=== PATIENT | male | born 1970 | race American Indian/Alaskan Native ===

== ENCOUNTER 2016-09-06 08:02 | Day surgery (SDC) | payer OTHER ==
[2016-09-06] MEDS ORDERED: WATER FOR IRRIG STERILE IR ONE (09:45)
[2016-09-06] MEDS ORDERED: HURRICAINE ONE 20% TOPICAL SPRAY MM ×3 (09:50→09:53)
--- NOTE | 2016-09-06 10:39 | Short Stay Summary ---
Short Stay Documentation Date of service: 09/06/16 - Allergies and Medications Current Medications: Allergies No Known Allergies Allergy (Verified 07/29/15 06:39) Home Medications Medication Instructions Recorded Confirmed Last Taken Type Ascorbic Acid [Vitamin C] 500 mg PO BID 06/14/15 09/06/16 09/05/16 09:00 History Diltiazem [Cardizem] 120 mg PO BID 06/14/15 09/06/16 09/05/16 21:00 History Ferrous Sulfate [Feosol 325 MG tab] 325 mg PO BID 06/14/15 09/06/16 09/05/16 09: 00 History Lisinopril/Hydrochlorothiazide 1 tab PO QDAY 06/14/15 09/06/16 09/05/16 09:00 History [Zestoretic 20-25 mg] Metoprolol [Lopressor TAB] 50 mg PO QDAY 06/14/15 09/06/16 09/05/16 09:00 History Multivits,Ca,Min/Iron/FA/Lycop 1 each PO QDAY 06/14/15 09/06/16 09/05/16 09:00 History [Centrum Men's Tablet] Vitamin B Complex [B Complex] 1 each PO DAILY 06/14/15 09/06/16 09/05/16 09:00 History metFORMIN [Glucophage] 500 mg PO BID 06/14/15 09/06/16 09/05/16 21:00 History Apixaban [Eliquis] 5 mg PO BID 07/29/15 09/06/16 09/03/16 09:00 History Ascorbic Acid [Vitamin C] 500 mg PO DAILY 07/29/15 09/06/16 09/05/16 09:00 History Amiodarone [Cordarone 200 MG TAB] 200 mg PO BID #60 tab 07/30/15 09/06/16 21:00 Rx Chlorthalidone 50 mg PO DAILY 09/06/16 09/06/16 09/05/16 09:00 History - Brief post op/procedure progress note Date of procedure: 09/06/16 Pre-op diagnosis: 1. Colon cancer screening 2. Melena Post-op diagnosis: same (EGD: 1. GERd 2. Esophageal cyst 3. Gastritis Colonoscopy : 1. Colon polyps 2. Internal hemorrhoids 3. Poor prep) Procedure: 1. EGD with biopsy 2. Colonoscopy with biopsy Anesthesia: MAC Findings: as above Surgeon: JASON SWANSON Estimated blood loss: none Pathology: list (1. Antrum 2. Colon polyps at anastomosis 3. Rectal polyp) Specimen disposition: to lab Condition: stable - Disposition Condition at discharge: Stable Disposition: DISCHARGED TO HOME OR SELFCARE Short Stay Discharge Plan Activity: no restrictions Weight Bearing Status: Full Weight Bearing Diet: regular, low salt, diabetic
[2016-09-06 10:50] VITALS: BP 142/87
== END 2016-09-06 08:03 | disposition home or self-care (01) ==
LOC: GIO 08:02
PROVIDERS: ATTEND Internal Medicine Gastroenterology
DX: K62.1 Rectal polyp (principal); D13.39 Benign neoplasm of other parts of small intestine; K64.0 First degree hemorrhoids; K22.8 Other specified diseases of esophagus; K29.50 Unspecified chronic gastritis without bleeding; E11.9 Type 2 diabetes mellitus without complications; Z87.19 Personal history of other diseases of the digestive system; Z80.9 Family history of malignant neoplasm, unspecified; Z83.3 Family history of diabetes mellitus
CPT/HCPCS: 82962; 88305; 88342

== ENCOUNTER 2018-05-08 06:45 | Day surgery (SDC) | payer OTHER ==
[2018-05-08] MEDS ORDERED: DIPRIVAN 10 MG/ML IV ONE ×2 (07:30)
[2018-05-08] MEDS ORDERED: WATER FOR IRRIG STERILE IR ONE (07:42)
[2018-05-08] MEDS ORDERED: WATER FOR IRRIG STERILE ONE (07:42)
[2018-05-08 07:54] VITALS: BP 153/100
[2018-05-08] MEDS ORDERED: NORMODYNE IV NR (07:56)
== END 2018-05-08 06:46 | disposition home or self-care (01) ==
LOC: GIO 06:45
PROVIDERS: ATTEND Internal Medicine Gastroenterology
DX: Z12.11 Encounter for screening for malignant neoplasm of colon (principal); I48.91 Unspecified atrial fibrillation; I49.01 Ventricular fibrillation; I25.10 Atherosclerotic heart disease of native coronary artery without angina pectoris; E78.00 Pure hypercholesterolemia, unspecified; I10 Essential (primary) hypertension; J45.909 Unspecified asthma, uncomplicated; K21.9 Gastro-esophageal reflux disease without esophagitis; E11.9 Type 2 diabetes mellitus without complications; Z79.899 Other long term (current) drug therapy; Z79.84 Long term (current) use of oral hypoglycemic drugs; E66.9 Obesity, unspecified; Z68.43 Body mass index [BMI] 50.0-59.9, adult; Z53.8 Procedure and treatment not carried out for other reasons; Z86.2 Personal history of diseases of the blood and blood-forming organs and certain disorders involving the immune mechanism; Z98.890 Other specified postprocedural states
CPT/HCPCS: 82962; J2704

== ENCOUNTER 2018-09-11 06:25 | Day surgery (SDC) | payer OTHER ==
[2018-09-11] MEDS ORDERED: NACL 0.9% 1000 ML 1,000 ML IV SCH (07:00)
[2018-09-11 09:06] VITALS: BP 122/75
--- NOTE | 2018-09-11 09:12 | Short Stay Summary ---
Short Stay Documentation - Allergies and Medications Current Medications: Allergies No Known Allergies Allergy (Verified 07/29/15 06:39) Home Medications Medication Instructions Recorded Confirmed Last Taken Type Ascorbic Acid [Vitamin C] 250 mg PO BID 06/14/15 09/10/18 09/10/18 History Ferrous Sulfate [Feosol 325 MG tab] 325 mg PO BID 06/14/15 09/10/18 09/05/16 09:00 History Lisinopril/Hydrochlorothiazide 20 mg PO QDAY 06/14/15 09/10/18 09/10/18 History [Zestoretic 20-25 mg] Metoprolol [Lopressor TAB] 50 mg PO QDAY 06/14/15 09/10/18 09/10/18 History Multivit-Mins/Iron/Folic/Lycop 1 each PO QDAY 06/14/15 09/10/18 09/05/16 09:00 History [Centrum Men's Tablet] Vitamin B Complex [B Complex] 1 each PO DAILY 06/14/15 09/10/18 09/05/16 09:00 History dilTIAZem [Cardizem] 120 mg PO DAILY 06/14/15 09/10/18 09/10/18 History metFORMIN [Glucophage] 1,000 mg PO BID 06/14/15 09/10/18 09/10/18 History Apixaban [Eliquis] 5 mg PO BID 07/29/15 09/10/18 09/03/16 09:00 History Amiodarone [Cordarone 200 MG TAB] 200 mg PO BID #60 tab 07/30/15 09/10/18 21:00 Rx Chlorthalidone 50 mg PO DAILY 09/06/16 09/10/18 09/05/16 09:00 History Calcium 600-D3 Plus Caplet 1 tab PO BID 05/07/18 09/10/18 Unknown History Glimepiride 2 mg PO DAILY 09/10/18 09/10/18 09/09/18 History Latanoprost 0.005% 1 drop OU DAILY 09/10/18 09/10/18 09/10/18 History Spironolactone 25 mg PO DAILY 09/10/18 09/10/18 09/10/18 History Active Medications Sodium Chloride (Nacl 0.9% 1000 Ml) 1,000 mls @ 50 mls/hr IV DIRECT UBALDO Last Admin: 09/11/18 07:56 Dose: 50 mls/hr Documented by: - Brief post op/procedure progress note Date of procedure: 09/11/18 Pre-op diagnosis: 1. History of colon cancer 2. FH colon cancer 3. History of colon polyps Post-op diagnosis: same (1. Colon polyp 2. Internal hemorrhoids) Procedure: Colonoscopy with snare polypectomy and with placement of Endoclip Anesthesia: MAC Findings: as above Surgeon: JASON SWANSON Estimated blood loss: none Pathology: list (Sigmoid colon polyp) Specimen disposition: to lab Condition: stable - Disposition Condition at discharge: Stable Disposition: DC-01 TO HOME OR SELFCARE Short Stay Discharge Plan Activity: no restrictions Weight Bearing Status: Full Weight Bearing Diet: regular Follow up with: YANCI TATUM MD [Primary Care Provider] - 7 Days
== END 2018-09-11 06:26 | disposition home or self-care (01) ==
LOC: GIO 06:25
PROVIDERS: ATTEND Internal Medicine Gastroenterology
DX: Z12.11 Encounter for screening for malignant neoplasm of colon (principal); K63.5 Polyp of colon; K64.8 Other hemorrhoids; I48.91 Unspecified atrial fibrillation; I25.118 Atherosclerotic heart disease of native coronary artery with other forms of angina pectoris; E78.00 Pure hypercholesterolemia, unspecified; I10 Essential (primary) hypertension; K21.9 Gastro-esophageal reflux disease without esophagitis; E11.9 Type 2 diabetes mellitus without complications; Z85.038 Personal history of other malignant neoplasm of large intestine; Z80.0 Family history of malignant neoplasm of digestive organs; Z79.899 Other long term (current) drug therapy; Z79.84 Long term (current) use of oral hypoglycemic drugs; Z98.890 Other specified postprocedural states; E66.9 Obesity, unspecified; Z68.43 Body mass index [BMI] 50.0-59.9, adult; Z86.2 Personal history of diseases of the blood and blood-forming organs and certain disorders involving the immune mechanism
CPT/HCPCS: 45385; 88305; J7030